=== PATIENT | female | born 1970 | race Caucasian/White ===

== ENCOUNTER 2023-09-10 18:55 | Inpatient (IN) | payer MEDICARE, OTHER ==
[~2023-09-10] VITALS: Ht 172.7 cm; Wt 69.4 kg
[2023-09-10 19:27] LABS: BASOPHILS % (AUTO) 0.5 % (0.0-2.0); EOSINOPHILS # (AUTO) 0.2 K/uL (0.0-0.7); EOSINOPHILS % (AUTO) 2.2 % (0.0-7.0); HEMATOCRIT 27.6 % (31.2-41.9); HEMOGLOBIN 8.7 g/dL (10.9-14.3); LYMPHOCYTES # (AUTO) 1.2 K/uL (0.8-4.8); LYMPHOCYTES % (AUTO) 16.2 % (20.5-51.5); MEAN CORPUSCULAR HEMOGLOBIN 26.7 uug (24.7-32.8); MEAN CORPUSCULAR HGB CONC 32 g/dL (32.3-35.6); MEAN CORPUSCULAR VOLUME 84.5 fL (75.5-95.3); MONOCYTES # (AUTO) 0.5 K/uL (0.1-1.30); MONOCYTES % (AUTO) 6.8 % (0.0-11.0); NEUTROPHILS # (AUTO) 5.6 K/uL (1.8-8.9); NEUTROPHILS % (AUTO) 74.3 % (38.5-71.5); PLATELET COUNT (AUTO) 350 K/uL (179-408); RED BLOOD CELL COUNT(AUTO) 3.27 MIL/uL (3.63-4.92); RED CELL DISTRIBUTION WIDTH 22.1 % (12.3-17.7); WHITE BLOOD COUNT (AUTO) 7.6 K/uL (3.8-11.8)
[2023-09-10 19:38] LABS: DIFFERENTIAL COMMENT 1
[2023-09-10 19:43] LABS: CALCIUM 9.3 mg/dL (8.5-10.1); CREATININE 0.6 mg/dL (0.6-1.3)
[2023-09-10 19:58] LABS: ALBUMIN 2.9 g/dL (3.4-5.0); BILIRUBIN,TOTAL 0.2 mg/dL (0.2-1.0); TOTAL PROTEIN, SERUM 7.7 g/dL (6.4-8.2)
[2023-09-10 20:12] LABS: ETHANOL < 3 MG/DL (0-10)
[2023-09-10] MEDS ORDERED: IV NORMAL SALINE 250 ML IV ONE (20:34)
[2023-09-10] MEDS ORDERED: IOHEXOL 350 100 ML INFUS..BTL ONE (20:34)
[2023-09-10] MEDS ORDERED: SWABABLE VALVE TRANSFER SET EA MC ONE (20:35)
[2023-09-10] MEDS ORDERED: ENOXAPARIN SODIUM 80 MG/0.8 ML DISP.SYRIN SQ ONE (23:26)
[2023-09-10] MEDS ORDERED: HYDR2TAB4 PO (23:43)
[2023-09-10] MEDS ORDERED: ZONI100C31 PO (23:43)
[2023-09-10] MEDS ORDERED: BACL20TA PO (23:43)
[2023-09-10] MEDS ORDERED: GABA600T12 PO (23:43)
[2023-09-10] MEDS ORDERED: OXCA300T15 PO (23:43)
[2023-09-10] MEDS ORDERED: NORT25CA PO (23:43)
[2023-09-10] MEDS ORDERED: ESCI10TA PO (23:43)
[2023-09-10] MEDS ORDERED: RIVA15TA PO (23:43)
[2023-09-10] MEDS ORDERED: ZOLP10TA2 PO (23:43)
[2023-09-10] MEDS: ENOXAPARIN SODIUM 80 MG/0.8 ML DISP.SYRIN SQ ONE (23:44)
[2023-09-11] MEDS ORDERED: KETOROLAC TROMETHAMINE 30 MG INJ ONE (00:28)
[2023-09-11] MEDS: KETOROLAC TROMETHAMINE 30 MG INJ IVP ONE (00:32)
[2023-09-11 00:52] LABS: *BILIRUBIN,URIN NEGATIVE (NEGATIVE); *CLARITY,URINE CLEAR (CLEAR); *COLOR,URINE YELLOW (YELLOW); *KETONES,URINE NEGATIVE (NEGATIVE); *PROTEIN,URINE NEGATIVE (NEGATIVE); *UROBILINOGEN,URINE 0.2 E.U./dl (NORMAL); LEUKOCYTE ESTERASE ,URINE NEGATIVE (NEGATIVE); NITRITE, URINE NEGATIVE (NEGATIVE); PH,URINE 7.5 (5.0-8.0); UGLUCOSE NEGATIVE (NEGATIVE)
[2023-09-11 01:06] LABS: *AMPHETAMINE, URINE NEGATIVE (NEGATIVE); *BARBITURATE, URINE NEGATIVE (NEGATIVE); *BENZODIAZEPINE, URINE NEGATIVE (NEGATIVE); *BLOOD, URINE NEGATIVE (NEGATIVE); *CANNABINOID, URINE POSITIVE (NEGATIVE); *COCCAINE, URINE NEGATIVE (NEGATIVE); *OPIATE, URINE POSITIVE (NEGATIVE); *PHENCYCLIDINE SCREEN,URINE NEGATIVE (NEGATIVE); FENTANYL, URINE NEGATIVE (NEGATIVE)
[2023-09-11 03:00] VITALS: BP 140/81; TEMP 98.8
[2023-09-11] MEDS ORDERED: HYDROMORPHONE 2 MG/1 ML DISP.SYRIN ONE (03:54)
[2023-09-11 08:00] VITALS: BP 114/67; TEMP 98; O2SAT 97
[2023-09-11] MEDS: ENOXAPARIN SODIUM 80 MG/0.8 ML DISP.SYRIN SQ SCH (09:55)
[2023-09-11 12:00] VITALS: BP 136/82; TEMP 98.9; O2SAT 100
[2023-09-11] MEDS: MORPHINE SULFATE 2 MG/1 ML DISP.SYRIN IV PRN (14:12)
[2023-09-11 16:00] VITALS: BP 125/77; TEMP 99.1; O2SAT 100
[2023-09-11] MEDS ORDERED: LINA290C PO (16:39)
[2023-09-11] MEDS ORDERED: OMEP20CA15 PO (16:39)
[2023-09-11] MEDS: OXCARBAZEPINE 300 MG TABLET PO SCH (18:09)
[2023-09-11] MEDS: GABAPENTIN 300 MG CAPSULE PO SCH (18:09)
[2023-09-11] MEDS: BACLOFEN 20 MG TABLET PO SCH (18:09)
[2023-09-11 20:52] VITALS: BP 132/76; TEMP 98.5; O2SAT 98
[2023-09-11] MEDS: ZOLPIDEM 5 MG TABLET PO SCH (21:09)
[2023-09-11] MEDS: ZONISAMIDE 100 MG CAPSULE PO SCH (21:09)
[2023-09-12 00:07] VITALS: BP 132/81; TEMP 100.1; O2SAT 99
[2023-09-12 06:06] VITALS: BP 136/74; TEMP 99.8; O2SAT 98
[2023-09-12] MEDS: PANTOPRAZOLE SODIUM 40 MG TABLET.DR PO SCH (06:36)
[2023-09-12 08:00] VITALS: BP 126/79; TEMP 99.5; O2SAT 97
[2023-09-12] MEDS: NORTRIPTYLINE HCL 25 MG CAPSULE PO SCH (08:49)
[2023-09-12] MEDS: ESCITALOPRAM OXALATE 10 MG TABLET PO SCH (08:49)
[2023-09-12] MEDS ORDERED: Linaclotide (Linzess) 1 CAP) PO SCH (09:00)
[2023-09-12] MEDS ORDERED: Medication Not On Formulary EA (Omeprazole 20 MG) PO SCH (09:00)
[2023-09-12 10:42] LABS: BASOPHILS % (AUTO) 0.5 % (0.0-2.0); EOSINOPHILS % (AUTO) 0.2 % (0.0-7.0); HEMATOCRIT 27.4 % (31.2-41.9); HEMOGLOBIN 8.6 g/dL (10.9-14.3); LYMPHOCYTES % (AUTO) 11.5 % (20.5-51.5); MEAN CORPUSCULAR HEMOGLOBIN 26.2 uug (24.7-32.8); MEAN CORPUSCULAR HGB CONC 31 g/dL (32.3-35.6); MEAN CORPUSCULAR VOLUME 83.5 fL (75.5-95.3); MONOCYTES # (AUTO) 0.7 K/uL (0.1-1.30); MONOCYTES % (AUTO) 7.5 % (0.0-11.0); NEUTROPHILS # (AUTO) 7.2 K/uL (1.8-8.9); NEUTROPHILS % (AUTO) 80.3 % (38.5-71.5); PLATELET COUNT (AUTO) 407 K/uL (179-408); RED BLOOD CELL COUNT(AUTO) 3.28 MIL/uL (3.63-4.92); RED CELL DISTRIBUTION WIDTH 21.9 % (12.3-17.7); WHITE BLOOD COUNT (AUTO) 8.9 K/uL (3.8-11.8)
[2023-09-12] MEDS: VANCOMYCIN IV 1,000 MG in IV DEXTROSE 5% 250 ML IV SCH (10:44)
[2023-09-12 10:55] LABS: DIFFERENTIAL COMMENT 1
[2023-09-12 11:02] LABS: ALBUMIN 2.7 g/dL (3.4-5.0); BILIRUBIN,TOTAL 0.4 mg/dL (0.2-1.0); CALCIUM 9.6 mg/dL (8.5-10.1); CREATININE 0.5 mg/dL (0.6-1.3); MAGNESIUM 1.9 mg/dL (1.8-2.4); PHOSPHOROUS 3.8 mg/dL (2.5-4.9); POTASSIUM 3.5 mmol/L (3.5-5.1); TOTAL PROTEIN, SERUM 7.7 g/dL (6.4-8.2)
[2023-09-12 12:12] VITALS: BP 126/72; TEMP 97.2; O2SAT 97
[2023-09-12] MEDS: PIPERACILLIN SODIUM/TAZOBACTAM 3.375 G in IV DEXTROSE 5% 50 ML IV SCH (12:31)
[2023-09-12] MEDS ORDERED: PIPERACILLIN SODIUM/TAZOBACTAM 3.375 G in IV DEXTROSE 5% 50 ML IV SCH (14:00)
[2023-09-12 16:00] VITALS: BP 129/78; TEMP 97.6; O2SAT 98
[2023-09-12 20:00] VITALS: BP 120/60; TEMP 98.2; O2SAT 99
[2023-09-13 07:41] LABS: BASOPHILS # (AUTO) 0.1 K/UL (0.0-0.2); BASOPHILS % (AUTO) 0.8 % (0.0-2.0); EOSINOPHILS # (AUTO) 0.1 K/uL (0.0-0.7); EOSINOPHILS % (AUTO) 1.1 % (0.0-7.0); HEMATOCRIT 27.1 % (31.2-41.9); HEMOGLOBIN 8.5 g/dL (10.9-14.3); LYMPHOCYTES # (AUTO) 0.9 K/uL (0.8-4.8); MEAN CORPUSCULAR HEMOGLOBIN 26.6 uug (24.7-32.8); MEAN CORPUSCULAR HGB CONC 31 g/dL (32.3-35.6); MEAN CORPUSCULAR VOLUME 84.6 fL (75.5-95.3); MONOCYTES # (AUTO) 0.6 K/uL (0.1-1.30); MONOCYTES % (AUTO) 7.5 % (0.0-11.0); NEUTROPHILS # (AUTO) 6.4 K/uL (1.8-8.9); NEUTROPHILS % (AUTO) 79.6 % (38.5-71.5); PLATELET COUNT (AUTO) 406 K/uL (179-408); RED CELL DISTRIBUTION WIDTH 21.6 % (12.3-17.7)
[2023-09-13 07:52] LABS: DIFFERENTIAL COMMENT 1
[2023-09-13 07:54] LABS: ALBUMIN 2.6 g/dL (3.4-5.0); BILIRUBIN,TOTAL 0.4 mg/dL (0.2-1.0); CALCIUM 9.6 mg/dL (8.5-10.1); CREATININE 0.6 mg/dL (0.6-1.3); MAGNESIUM 1.8 mg/dL (1.8-2.4); PHOSPHOROUS 3.9 mg/dL (2.5-4.9); POTASSIUM 3.3 mmol/L (3.5-5.1); THYROID STIMULATING HORMONE 2.342 mIU/mL (0.358-3.740); TOTAL PROTEIN, SERUM 7.6 g/dL (6.4-8.2)
[2023-09-13] MEDS: POTASSIUM CHLORIDE 20 MEQ TAB.PRT.SR PO ONE (11:00)
[2023-09-13 12:01] VITALS: BP 119/83; TEMP 97; O2SAT 98
[2023-09-13] MEDS: VANCOMYCIN IV 1,000 MG in IV DEXTROSE 5% 250 ML IV SCH (15:59)
[2023-09-13 20:30] VITALS: BP 121/78; TEMP 98.1; O2SAT 98
[2023-09-14 00:26] VITALS: BP 134/84; TEMP 98; O2SAT 99
[2023-09-14 04:31] VITALS: BP 114/77; TEMP 98.4; O2SAT 96
[2023-09-14 07:57] LABS: CALCIUM 9.8 mg/dL (8.5-10.1); CREATININE 0.8 mg/dL (0.6-1.3); POTASSIUM 3.4 mmol/L (3.5-5.1)
[2023-09-14] MEDS: POTASSIUM CHLORIDE 20 MEQ TAB.PRT.SR PO ONE (09:18)
[2023-09-14] MEDS: BISACODYL 10 MG SUPP.RECT RC PRN (09:21)
[2023-09-14 16:00] VITALS: BP 132/89; TEMP 99.2; O2SAT 97
[2023-09-14 17:23] LABS: BASOPHILS # (AUTO) 0.1 K/UL (0.0-0.2); BASOPHILS % (AUTO) 0.8 % (0.0-2.0); EOSINOPHILS # (AUTO) 0.1 K/uL (0.0-0.7); HEMATOCRIT 26.2 % (31.2-41.9); HEMOGLOBIN 8.2 g/dL (10.9-14.3); LYMPHOCYTES # (AUTO) 1.1 K/uL (0.8-4.8); LYMPHOCYTES % (AUTO) 15.5 % (20.5-51.5); MEAN CORPUSCULAR HGB CONC 31 g/dL (32.3-35.6); MEAN CORPUSCULAR VOLUME 85.7 fL (75.5-95.3); MONOCYTES # (AUTO) 0.6 K/uL (0.1-1.30); MONOCYTES % (AUTO) 8.1 % (0.0-11.0); NEUTROPHILS # (AUTO) 5.3 K/uL (1.8-8.9); NEUTROPHILS % (AUTO) 73.6 % (38.5-71.5); PLATELET COUNT (AUTO) 422 K/uL (179-408); RED BLOOD CELL COUNT(AUTO) 3.05 MIL/uL (3.63-4.92); RED CELL DISTRIBUTION WIDTH 21.6 % (12.3-17.7); WHITE BLOOD COUNT (AUTO) 7.2 K/uL (3.8-11.8)
[2023-09-14 17:36] LABS: DIFFERENTIAL COMMENT 1
[2023-09-14] MEDS: VANCOMYCIN IV 1,000 MG in IV DEXTROSE 5% 250 ML IV SCH (18:07)
[2023-09-14 22:38] VITALS: BP 111/69; TEMP 98.2; O2SAT 100
[2023-09-14] MEDS: ACIDOPHILUS/BULGARICUS CHEW TAB PO SCH (22:46)
[2023-09-14] MEDS ORDERED: CEFEPIME HCL 1 G VIAL ONE (23:52)
[2023-09-14] MEDS: CEFEPIME HCL 1 G in IV DEXTROSE 5% 50 ML IV ONE (23:59)
[2023-09-15 07:35] LABS: BASOPHILS # (AUTO) 0.1 K/UL (0.0-0.2); BASOPHILS % (AUTO) 0.7 % (0.0-2.0); EOSINOPHILS # (AUTO) 0.1 K/uL (0.0-0.7); EOSINOPHILS % (AUTO) 0.6 % (0.0-7.0); HEMATOCRIT 27.3 % (31.2-41.9); HEMOGLOBIN 8.8 g/dL (10.9-14.3); LYMPHOCYTES # (AUTO) 0.9 K/uL (0.8-4.8); LYMPHOCYTES % (AUTO) 9.1 % (20.5-51.5); MEAN CORPUSCULAR HEMOGLOBIN 27.2 uug (24.7-32.8); MEAN CORPUSCULAR HGB CONC 32 g/dL (32.3-35.6); MEAN CORPUSCULAR VOLUME 84.7 fL (75.5-95.3); MONOCYTES # (AUTO) 0.7 K/uL (0.1-1.30); MONOCYTES % (AUTO) 7.1 % (0.0-11.0); NEUTROPHILS # (AUTO) 7.8 K/uL (1.8-8.9); NEUTROPHILS % (AUTO) 82.5 % (38.5-71.5); PLATELET COUNT (AUTO) 430 K/uL (179-408); RED BLOOD CELL COUNT(AUTO) 3.23 MIL/uL (3.63-4.92); RED CELL DISTRIBUTION WIDTH 21.7 % (12.3-17.7); WHITE BLOOD COUNT (AUTO) 9.5 K/uL (3.8-11.8)
[2023-09-15 07:41] LABS: DIFFERENTIAL COMMENT 1
[2023-09-15] MEDS ORDERED: CEFEPIME HCL 1 G in IV DEXTROSE 5% 50 ML IV SCH ×2 (09:00→10:00)
[2023-09-15 12:00] VITALS: BP 139/73; TEMP 97.2; O2SAT 97
[2023-09-15 16:00] VITALS: BP 152/75; TEMP 97.6; O2SAT 97
[2023-09-16 05:11] LABS: A/G RATIO 0.7 (0.7-1.7); ALBUMIN 2.7 g/dL (2.9-4.4); ALPHA-1-GLOBULIN 0.5 g/dL (0.0-0.4); BETA GLOBULIN 1.1 g/dL (0.7-1.3); GAMMA GLOBULIN 1.4 g/dL (0.4-1.8); M-SPIKE Not Observed g/dL (Not Observed)
== END 2023-09-15 16:15 | disposition home health service (06) | DRG 175 ==
LOC: ER 18:57 → TELE3 09-11 00:46 → MEDSURG3 09-13 11:58
PROVIDERS: ATTEND Internal Medicine
PROC: 06HM33Z Insertion of Infusion Device into Right Femoral Vein, Percutaneous Approach (ICD-10-PCS; principal; 2023-09-13)
DX: I26.99 Other pulmonary embolism without acute cor pulmonale (principal); E43 Unspecified severe protein-calorie malnutrition; C78.7 Secondary malignant neoplasm of liver and intrahepatic bile duct; C79.51 Secondary malignant neoplasm of bone; I31.39 Other pericardial effusion (noninflammatory); J90 Pleural effusion, not elsewhere classified; C78.02 Secondary malignant neoplasm of left lung; C78.01 Secondary malignant neoplasm of right lung; C50.919 Malignant neoplasm of unspecified site of unspecified female breast; I26.94 Multiple subsegmental thrombotic pulmonary emboli without acute cor pulmonale; G35 Multiple sclerosis; Z90.13 Acquired absence of bilateral breasts and nipples; Z92.21 Personal history of antineoplastic chemotherapy; Z92.3 Personal history of irradiation; R29.6 Repeated falls; D63.8 Anemia in other chronic diseases classified elsewhere; R00.0 Tachycardia, unspecified; E88.09 Other disorders of plasma-protein metabolism, not elsewhere classified; M84.48XD Pathological fracture, other site, subsequent encounter for fracture with routine healing; F41.9 Anxiety disorder, unspecified; G47.00 Insomnia, unspecified
CPT/HCPCS: 36415; 71045; 71275; 82378; 82747; 82784; 83550; 83735; 84100; 84155; 84165; 84443; 84484; 85014; 85025; 85610; 86300; 86334; 87040; 93005; 93307; A4663; A6209; G0378; G0480; J0692; J1170; J1650; J1885; J2270; J2543; J3370; J7050; J8499; Q9967